=== PATIENT | female | born 1990 | race Caucasian/White ===

== ENCOUNTER 2019-08-22 10:10 | Emergency (ER) | payer MEDICAID ==
[~2019-08-22] VITALS: Ht 165.1 cm; Wt 55.0 kg
[~2019-08-22 10:10] MED LIST: ACET1TAB12 PO
[2019-08-22 10:27] VITALS: BP 146/86
[2019-08-22] MEDS ORDERED: acetaminophen 325mg tablet PO ONE (11:20)
[2019-08-22] MEDS ORDERED: ketorolac trometh inj. 60 MG/2 ML VIAL IM ONE (11:20)
== END 2019-08-22 11:55 | disposition home or self-care (01) ==
LOC: ER 10:10
DX: S66.811A Strain of other specified muscles, fascia and tendons at wrist and hand level, right hand, initial encounter (principal); W01.0XXA Fall on same level from slipping, tripping and stumbling without subsequent striking against object, initial encounter; Y93.89 Activity, other specified; Y92.89 Other specified places as the place of occurrence of the external cause; Y99.9 Unspecified external cause status
CPT/HCPCS: 29130; 73130; 96372; 99284; J1885

== ENCOUNTER 2022-10-23 08:54 | Emergency (ER) | payer MEDICAID ==
[~2022-10-23] VITALS: Ht 165.1 cm; Wt 52.0 kg
[~2022-10-23 08:54] MED LIST changes: +CEPH500C81 PO; +HYDR-3965 PO; +SULF1TAB49 PO
[2022-10-23 09:01] VITALS: BP 134/97
== END 2022-10-23 10:14 | disposition home or self-care (01) ==
LOC: ER 08:54
DX: S93.491A Sprain of other ligament of right ankle, initial encounter (principal); F17.200 Nicotine dependence, unspecified, uncomplicated; Z72.89 Other problems related to lifestyle; Z86.69 Personal history of other diseases of the nervous system and sense organs; Z79.899 Other long term (current) drug therapy; W18.39XA Other fall on same level, initial encounter; Y93.89 Activity, other specified; Y92.89 Other specified places as the place of occurrence of the external cause; Y99.8 Other external cause status
CPT/HCPCS: 73610; 99284; A6449

== ENCOUNTER 2022-12-15 12:16 | Emergency (ER) | payer MEDICAID ==
[~2022-12-15] VITALS: Ht 165.1 cm; Wt 50.9 kg
[2022-12-15 12:24] VITALS: BP 141/101
[2022-12-15] MEDS ORDERED: ketorolac trometh inj. 60 MG/2 ML VIAL IM ONE (13:35)
[2022-12-15] MEDS ORDERED: IBUP-1986 PO (13:48)
== END 2022-12-15 13:59 | disposition home or self-care (01) ==
LOC: ER 12:17
DX: S93.401A Sprain of unspecified ligament of right ankle, initial encounter (principal); Z86.69 Personal history of other diseases of the nervous system and sense organs; Z72.89 Other problems related to lifestyle; Z79.899 Other long term (current) drug therapy; W01.0XXA Fall on same level from slipping, tripping and stumbling without subsequent striking against object, initial encounter; Y93.89 Activity, other specified; Y92.89 Other specified places as the place of occurrence of the external cause; Y99.8 Other external cause status
CPT/HCPCS: 73610; 96372; 99284; J1885; L4360; A6449

== ENCOUNTER 2023-07-24 11:05 | Emergency (ER) | payer MEDICAID ==
[~2023-07-24] VITALS: Ht 165.1 cm; Wt 58.0 kg
[~2023-07-24 11:05] MED LIST changes: +IBUP-1986 PO
[2023-07-24 13:11] LABS: BILIRUBIN,URINE NEGATIVE (Neg); CLARITY,URINE CLEAR (Clear); COLOR,URINE YELLOW (Yellow); GLUCOSE, URINE NEGATIVE (Neg); KETONES,URINE NEGATIVE (Neg); LEUKOCYTE ESTERASE ,URINE NEGATIVE (Neg); NITRITES, URINE NEGATIVE (Neg); OCCULT BLOOD,URINE MODERATE (Neg); PH,URINE 5.5 (4.8-8.0); PROTEIN,URINE NEGATIVE (Neg); UROBILINOGEN,URINE 0.2 E.U/dL (0.2-1.0)
[2023-07-24 13:26] LABS: UA COLLECTION TYPE CLN CATCH MIDSTREAM
[2023-07-24 13:30] LABS: BACTERIA,URINE FEW /HPF (Neg); SQUAMOUS EPITHELIAL CELL,UR MODERATE /LPF (FEW); WBC,URINE 0-4 /HPF (0-4)
[2023-07-24 13:31] LABS: MUCUS STRANDS FEW /LPF (Neg)
--- NOTE | 2023-07-24 15:30 | NUR ---
I have reviewed and agree with all interventions, assessments performed and documented by ZOEY Thomas.
--- NOTE | 2023-07-24 15:32 | NUR ---
PT REPORTS 5 TOTAL PREGNANCYS (CURRENTLY ) AND 4 LIVE BIRTHS.
[2023-07-24 16:16] VITALS: BP 99/60; PULSE 86; RESP 17; TEMP 97; O2SAT 100
== END 2023-07-24 16:18 | disposition home or self-care (01) ==
LOC: ER 11:05
DX: O20.0 Threatened abortion (principal)
CPT/HCPCS: 36415; 81001; 84702; 86900; 86901; 99283

== ENCOUNTER 2023-07-26 09:48 | Emergency (ER) | payer MEDICAID ==
[~2023-07-26] VITALS: Ht 165.1 cm; Wt 55.2 kg
[2023-07-26 09:59] VITALS: BP 133/86; PULSE 84; RESP 18; TEMP 98; O2SAT 98
--- NOTE | 2023-07-26 11:30 | NUR ---
Chad. NOTIFIED @7910 OF PT IN RM 17 THAT NEEDS MSE
== END 2023-07-26 14:09 | disposition home or self-care (01) ==
LOC: ER 09:49
DX: O20.0 Threatened abortion (principal); Z3A.00 Weeks of gestation of pregnancy not specified; F17.200 Nicotine dependence, unspecified, uncomplicated; Z79.1 Long term (current) use of non-steroidal anti-inflammatories (NSAID); Z79.2 Long term (current) use of antibiotics
CPT/HCPCS: 36415; 84702; 99283

== ENCOUNTER 2024-11-11 23:54 | Emergency (ER) | payer MEDICAID ==
[~2024-11-11] VITALS: Ht 165.1 cm; Wt 68.3 kg
[2024-11-11 23:56] VITALS: TEMP 98.6
[2024-11-12] MEDS ORDERED: NO HOME MEDS (00:08)
[2024-11-12] MEDS: normal saline 1000ML IV soln IVB ONE (01:08)
[2024-11-12] MEDS: ketorolac trometh 15mg/ml vial 15 MG/ML ML IV ONE (01:08)
[2024-11-12] MEDS: ampicillin/sulbac 3gm/NS 100ml 100 ML IV SCH (01:16)
[2024-11-12] MEDS ORDERED: HYDR-3965 PO (01:45)
[2024-11-12] MEDS ORDERED: AMOX-580 PO (01:45)
[2024-11-12 02:29] VITALS: BP 124/46; PULSE 87; RESP 15; O2SAT 99
== END 2024-11-12 02:31 | disposition home or self-care (01) ==
LOC: ER 23:54
DX: S51.032A Puncture wound without foreign body of left elbow, initial encounter (principal); Z79.2 Long term (current) use of antibiotics; Z79.899 Other long term (current) drug therapy; Z87.440 Personal history of urinary (tract) infections; W54.0XXA Bitten by dog, initial encounter; Y93.89 Activity, other specified; Y92.89 Other specified places as the place of occurrence of the external cause; Y99.8 Other external cause status
CPT/HCPCS: 73070; 96365; 96375; 99284; J0295; J1885; J7030; A4565

== ENCOUNTER 2025-02-11 19:20 | Emergency (ER) | payer MEDICAID, OTHER ==
[~2025-02-11] VITALS: Ht 165.1 cm; Wt 56.2 kg
[~2025-02-11 19:20] MED LIST changes: -ACET1TAB12 PO; -CEPH500C81 PO; -HYDR-3965 PO; -IBUP-1986 PO; +NO HOME MEDS; -SULF1TAB49 PO
[2025-02-11 19:22] VITALS: BP 133/93; PULSE 86; TEMP 98.4; O2SAT 94
--- NOTE | 2025-02-11 20:54 | RADIOLOGY REPORT ---
Clinical History HAND PAIN Comparison None Without Contrast CARMELA LARIOS, [id number] TECHNIQUE: 3 view of the hand FINDINGS: Ring at the fourth digit obscures proximal phalanx. There is no acute fracture or dislocation. Joint spaces are preserved. Soft tissue is unremarkable. IMPRESSION: No acute osseous abnormality. This report was electronically signed by Ferny Rausch MD on 02/11/2025 8:51:15 PM.
--- NOTE | 2025-02-11 21:34 | Physician Documentation ---
History of Present Illness ~ Chief Complaint: Bite-animal Stated Complaint: DOG BITE/ARM PAIN Time Seen by MD: 20:24 OK to notify your PCP?: Yes Primary Medical Doctor: Everette Fonseca Source: patient Mode of Arrival: POV Exam Limitations: no limitations HPI Joy is a 34-year-old female with left hand swelling and abrasions from dog teeth after being bitten by her own large dog around 2:00 p.m. today. She states that the dog has puppies and was protecting her puppies but is fully vaccinated. Last tetanus was in 2021. No medications taken for her symptoms prior to arrival. Tetanus within 5 years?: Yes (2022) Medication Reconciliation Allergies: Coded Allergies: No Known Allergies (Unverified , 11/11/24) Scheduled Amox Tr/Potassium Clavulanate 875/125 MG (Augmentin 875/125 MG), 1 TAB PO Q12H Naproxen (Naproxen), 1 TAB PO Q12H Miscellaneous Medications Home Med List (No Home Medications), (Reported) Past Medical History Past Medical History: Seizures, UTI Past Surgical History: no surgical history Alcohol Use: Occasionally Drug Use: none Lives with: S/O Lives In: Home Review of Systems All Other Systems at this time: Reviewed and Negative Physical Exam Vital Signs: RN Vital Signs have been reviewed: Yes, Temperature: 98.4, Heart Rate: 86, Respiratory Rate: 16, BP: 133/93, Pulse Oximetry: 94, Weight: 56.250 Oxygen Flow Rate: 0 Pulse Oximetry Reflects: adequate oxygenation Physical Exam General: Alert, no apparent distress. HEENT: PERRL, EOMI, no injection, moist mucous membranes. Neck: Full range of motion. Respiratory: Lungs clear, no respiratory distress. Chest: No accessory muscle use. Cardiovascular: Regular rate and rhythm, no murmurs. Gastrointestinal: Soft, nontender, nondistended. Bowels sounds present. Extremities: Normal range of motion, no deformity. Neurologic: Oriented x4. Psychiatric: Normal mood and affect. Skin: Normal color, warm and dry. Edema, tenderness and ecchymosis to left hand, worse on the ulnar side. Abrasions to hand consistent with teeth buckley. She is wearing her wedding ring on her 4th finger and is swollen around it which we will try to remove Progress Results/Orders Reviewed/noted all lab results: Yes Results/Orders Orders - DOT JAIN General Nursing Order (02/11/25 ) Ortho Orders (02/11/25 ) Completed Orders - DOT JAIN Amox Tr/Potassium Clavulanate (Augmentin (02/11/25 21:25) Hydrocodone/Apap 5/325mg Tab ([place] 5/32 (02/11/25 21:30) Naproxen Tablet (Naprosyn Tablet) (02/11/25 21:30) Medications Received in ER Medications (Trade) Dose Ordered Sig/Isiah Route PRN Reason Start Time Stop Time Status Last Admin Dose Admin (Augmentin 875-125mg tablet) 1 tab ONCE ONCE PO 02/11/25 21:25 02/11/25 21:27 DC 02/11/25 21:36 1 TAB ([place] 5/325mg tablet) 1 tab ONCE ONCE PO 02/11/25 21:30 02/11/25 21:31 DC 02/11/25 21:37 1 TAB (Naprosyn tablet) 500 mg ONCE ONCE PO 02/11/25 21:30 02/11/25 21:31 DC 02/11/25 21:36 500 MG Vital Signs 02/11/25 02/11/25 19:22 21:37 Temp 98.4 Pulse 86 Resp 16 18 B/P (MAP) 133/93 Pulse Ox 94 O2 Flow Rate 0 EKG/XRAY/CT/US/VASC/MRI Bone/Soft Tissue X-Ray (Ext.) : Additional Comment left Hand X-ray as interpreted by me; no joint effusion, no acute fracture, no soft tissue swelling, no dislocation, or foreign body. Medical Decision Making Findings Joy is a 34-year-old female with left hand pain, ecchymosis, edema, abrasions after being bitten by her own dog vaccinated dog around 2:00 p.m. today. Her tetanus is up-to-date. She had a x-ray of her left hand which does not reveal any acute fractures. She has her arm in a sling from home. She has reduced range of motion of her fingers, and we discussed the limitations of x- ray as sometimes it may miss tiny fractures of the hand. Due to this we will put her in a wrist/hand Velcro splint to help provide extra support. She has been given Augmentin, [place], naproxen during her stay. She will be discharged home with Augmentin and naproxen prescriptions. Follow up with the primary care provider in the next 3 days. She should return back here for any new or worsening symptoms. She should not wear any rings on her fingers during this time until the swelling is completely gone. Differential Dx:Considerations: Include: Abrasion, Contusion, Fracture, Graham elin, Neurovascular injury, Punture wound, Retained foreign body Departure Disposition: 01 HOME / SELF CARE / HOMELESS Impression: Primary Impression: Dog bite Condition: Stable Discharge Instructions: Animal Bite, Adult Additional Instructions: Please take all of the antibiotics as prescribed and finish the course. You have been given naproxen to help with the pain and the swelling. You can take Tylenol at home to help with the pain as well. Please keep the arm elevated above the level of the heart to help reduce swelling tonight. You can use ice/heat as well. At sometimes the x-ray is limited and may miss tiny fractures of the hand bones. If you are still experiencing symptoms in the next 10 days, you may need a repeat hand x-ray which can be done as an outpatient. We have given you a Velcro splint to help support the hand and provide some compression. You can wear your sling at home. Follow up with her primary care provider in the next 3 days. Return back here for any new or worsening symptoms. Do not wear any rings on your hand while it is swollen. Referrals: NO PRIMARY CARE PROVIDER (PCP) Prescriptions Naproxen (Naproxen) 500 Mg Tablet 1 TAB PO Q12H for 10 Days, #20 TAB Prov: DOT JAIN 02/11/25 Amox Tr/Potassium Clavulanate 875/125 MG (Augmentin 875/125 MG) 875 Mg-125 Mg Tablet 1 TAB PO Q12H for 10 Days, #20 TAB Prov: DOT JAIN 02/11/25 Education Educated: Patient, Family Educated regarding: diagnosis, treatment, prognosis, need for follow up Signature Scribe Signature: . Attestation: Scribed for Dot Jain by Dot Sánchez NP . 02/11/25 21:46 DOT JAINP February 11, 2025 21:34
[2025-02-11] MEDS ORDERED: AMOX-580 PO (21:36)
[2025-02-11] MEDS: naproxen 500mg tablet PO ONE (21:36)
[2025-02-11] MEDS: amox tr/potassium clavulanate 875/125mg TAB PO ONE (21:36)
[2025-02-11] MEDS ORDERED: NAPR-56 PO (21:36)
[2025-02-11 21:37] VITALS: RESP 18
[2025-02-11] MEDS: HYDROcodone/acetaminophen 5mg/325mg tablet PO ONE (21:37)
== END 2025-02-11 21:52 | disposition home or self-care (01) ==
LOC: ER 19:21
DX: S60.222A Contusion of left hand, initial encounter (principal); S60.512A Abrasion of left hand, initial encounter; W54.0XXA Bitten by dog, initial encounter; Y93.89 Activity, other specified; Y92.89 Other specified places as the place of occurrence of the external cause; Y99.8 Other external cause status
CPT/HCPCS: 29125; 73130; 99284

== ENCOUNTER 2025-02-20 16:17 | Emergency (ER) | payer OTHER ==
[~2025-02-20] VITALS: Ht 165.1 cm; Wt 56.4 kg
[~2025-02-20 16:17] MED LIST changes: +AMOX-580 PO; +NAPR-56 PO
[2025-02-20 16:30] VITALS: BP 128/86; PULSE 87; RESP 17; TEMP 98; O2SAT 98
--- NOTE | 2025-02-20 16:59 | Physician Documentation ---
History of Present Illness ~ Chief Complaint: Wound Re-Check Stated Complaint: LT HAND PAIN Time Seen by MD: 16:56 Primary Medical Doctor: Everette Fonseca HPI With the ED after having a dog bite occur on her left hand and proximally 10 days ago. She says she took all of her antibiotics which was Augmentin. Reports increased pain and swelling. Denies any fever however. Day of Onset of Wound: February 20, 2025 Tetanus within 5 years?: Yes (2022) Medication Reconciliation Allergies: Coded Allergies: No Known Allergies (Unverified , 11/11/24) Scheduled Amox Tr/Potassium Clavulanate 875/125 MG (Augmentin 875/125 MG), 1 TAB PO Q12H Doxycycline Monohydrate (Doxycycline Monohydrate), 1 CAP PO Q12H Naproxen (Naproxen), 1 TAB PO Q12H Miscellaneous Medications Home Med List (No Home Medications), (Reported) Past Medical History Past Medical History: Seizures, UTI Past Surgical History: no surgical history Alcohol Use: Occasionally Drug Use: none Lives with: S/O Lives In: Home Review of Systems All Other Systems at this time: Reviewed and Negative ROS The note accurately reflects work and decisions made by me.Conrad Murphy - MUSHROOM CUTTER 02/20/25 16:58 Physical Exam Vital Signs: Temperature: 98.0, Heart Rate: 87, Respiratory Rate: 17, BP: 128/86, Pulse Oximetry: 98, Weight: 56.360 Oxygen Flow Rate: 0 Physical Exam General: Alert, no apparent distress. Extremities: Normal range of motion, no deformity. swelling on the medial aspect of the left hand, no raised areas no areas of fluctuance Neurologic: Oriented x4. Psychiatric: Normal mood and affect. Skin: Normal color, warm and dry. No edema, no ecchymosis. Progress Results/Orders Results/Orders Completed Orders - CONRAD MURPHY NP Doxycycline 100mg Capsule (Vibramycin 10 (02/20/25 17:23) Medications Received in ER Medications (Trade) Dose Ordered Sig/Isiah Route PRN Reason Start Time Stop Time Status Last Admin Dose Admin (VIBRAMYCIN 100mg capsule) 100 mg ONCE STAT PO 02/20/25 17:23 02/20/25 17:24 DC 02/20/25 17:27 100 MG Vital Signs 02/20/25 16:30 Temp 98.0 Pulse 87 Resp 17 B/P (MAP) 128/86 Pulse Ox 98 O2 Flow Rate 0 Medical Decision Making Findings Going to change antibiotics from Augmentin to doxycycline in the encouraged the patient to maintain an appropriate medication regimen. I am suspicious that this is not occurred during that initial round of antibiotics Differential Dx:Considerations: Include: Abscess, Cellulitis, Dressing change, Healing wound, Other Departure Disposition: 01 HOME / SELF CARE / HOMELESS Impression: Primary Impression: Cellulitis Additional Impression: Dog bite Condition: Improved Discharge Instructions: Wound Care, Adult Referrals: NO PRIMARY CARE PROVIDER (PCP) Prescriptions Doxycycline Monohydrate (Doxycycline Monohydrate) 100 Mg Capsule 1 CAP PO Q12H for 10 Days, #20 CAP Prov: CONRAD MURPHY MUSHROOM CUTTER 02/20/25 Education Educated: Patient Educated regarding: diagnosis Signature Scribe Signature: b Attestation: The note accurately reflects work and decisions made by me.Conrad Sánchez NP 02/20/25 19:11 CONRAD MURHPY NP February 20, 2025 16:58
[2025-02-20] MEDS ORDERED: DOXY-460 PO (17:22)
[2025-02-20] MEDS: DOXYCYCLINE 100MG CAPSULE PO STA (17:27)
== END 2025-02-20 17:34 | disposition home or self-care (01) ==
LOC: ER 16:18
DX: L03.114 Cellulitis of left upper limb (principal); Z79.899 Other long term (current) drug therapy; Z72.89 Other problems related to lifestyle; W54.0XXA Bitten by dog, initial encounter; Y93.89 Activity, other specified; Y92.89 Other specified places as the place of occurrence of the external cause; Y99.8 Other external cause status
CPT/HCPCS: 99283